=== PATIENT | female | born 1955 | race Caucasian/White ===

== ENCOUNTER → 2022-04-02 | Day surgery (SDC) | payer MEDICARE, OTHER ==
[~2022-04-02] MED LIST: Midazolam 1 MG/ML 2 ML SDV ONE; Propofol 200 MG/20 ML SDV ONE; fentaNYL 100 MCG/2 ML SDV ONE
== END ==
LOC: JP.SDS 06:00
PROVIDERS: ATTEND Family Medicine
DX: Z12.11 Encounter for screening for malignant neoplasm of colon (principal); D12.0 Benign neoplasm of cecum; D12.4 Benign neoplasm of descending colon; D12.3 Benign neoplasm of transverse colon; I10 Essential (primary) hypertension; F17.200 Nicotine dependence, unspecified, uncomplicated; Z86.010 Personal history of colon polyps; Z80.0 Family history of malignant neoplasm of digestive organs; Z79.899 Other long term (current) drug therapy
CPT/HCPCS: 45380; 88305; J2250; J2704; J3010

== ENCOUNTER 2025-01-10 04:31 | Emergency (ER) | payer MEDICARE, OTHER ==
[2025-01-10] MEDS: EPINEPHrine 1 MG/ML SDV IM ONE (04:42)
[2025-01-10] MEDS: methylPREDNISolone Sodium Succinate 125 MG/2 ML SDV IV ONE (04:42)
[2025-01-10] MEDS ORDERED: Sodium Chloride 0.9% 10 ML Syringe FLUSH PRN (04:42)
== END 2025-01-10 07:35 | disposition home or self-care (01) ==
LOC: JP.ED 04:31
DX: T78.3XXA Angioneurotic edema, initial encounter (principal); I10 Essential (primary) hypertension; Z79.899 Other long term (current) drug therapy; Z88.8 Allergy status to other drugs, medicaments and biological substances; Z88.1 Allergy status to other antibiotic agents; Z88.6 Allergy status to analgesic agent; Z88.2 Allergy status to sulfonamides
CPT/HCPCS: 96372; 96374; 96375; 99283; J0171; J1308; J2919